=== PATIENT | male | born 1960 | race Caucasian/White ===

== ENCOUNTER 2019-07-03 05:09 | Day surgery (SDC) | payer MEDICARE, MEDICAID ==
[2019-07-03] MEDS ORDERED: MIDAZOLAM INJ 2 MG/2 ML VIAL ONE (06:16)
[2019-07-03] MEDS ORDERED: MOXIFLOXACIN HCL (OPHTH) 1 DROP DROPS ONE (07:38)
[2019-07-03] MEDS ORDERED: PROPARACAINE 0.5% OPHTH SOL 15 ML BTTL ONE (07:39)
[2019-07-03] MEDS ORDERED: TROP 1%/CYCLOPEN 1%/PHENYL 2% DROPS ONE (07:39)
[2019-07-03] MEDS ORDERED: PROPARACAINE 0.5% OPHTH SOL 15 ML BTTL LEFT_EYE ONE (09:48)
[2019-07-03] MEDS ORDERED: LIDOCAINE 1% MPF 2 ML VIAL INJ ONE (09:57)
[2019-07-03] MEDS ORDERED: MOXIFLOXACIN HCL (OPHTH) 1 DROP DROPS LEFT_EYE ONE ×2 (09:57→10:03)
[2019-07-03] MEDS ORDERED: BRIMONIDINE 0.2% OPHTH DROPS LEFT_EYE ONE ×2 (09:58→10:04)
[2019-07-03] MEDS ORDERED: TOBRAMYCIN SULF 0.3 % OPHT SOL 1 DROP LEFT_EYE ONE ×2 (09:58→10:04)
[2019-07-03] MEDS ORDERED: DEXAMETHASONE 0.1% OPHTH SOL 1 DROP LEFT_EYE ONE ×2 (09:58→10:04)
== END 2019-07-03 10:45 | disposition home or self-care (01) ==
LOC: AMB 05:09
PROVIDERS: ATTEND Ophthalmology
DX: H25.12 Age-related nuclear cataract, left eye (principal); I10 Essential (primary) hypertension; Z79.899 Other long term (current) drug therapy
CPT/HCPCS: 00142; 66984; J2250